=== PATIENT | male | born 1975 | race Caucasian/White ===

== ENCOUNTER 2016-11-18 03:00 | Emergency (ER) | payer SELFPAY ==
[2016-11-18 03:33] VITALS: BP 115/81
== END 2016-11-18 03:20 | disposition left against medical advice (07) ==
LOC: ED 03:00
DX: M54.2 Cervicalgia (principal); M54.9 Dorsalgia, unspecified; M25.562 Pain in left knee; Z53.21 Procedure and treatment not carried out due to patient leaving prior to being seen by health care provider